=== PATIENT | male | born 1950 | race Two or more races ===

== ENCOUNTER 2021-08-11 07:54 | Observation (INO) ==
[2021-08-11] MEDS ORDERED: SODIUM CHLORIDE 0.9% 1000ML 1,000 ML IV ONE (08:13)
--- NOTE | 2021-08-11 08:20 | Emergency Department Note ---
Impression & Plan Syncope and collapse, HTN (hypertension), HLD (hyperlipidemia), Elevated bilirubin ED Provider Note NAME: BRITTANY HERNANDEZ AGE: 71 SEX: M : 1950 ARRIVES VIA: Ambulance INFORMANT: Patient ED PROVIDER(S): Adis Potts DO CHIEF COMPLAINT: syncope HPI: Patient is a 71-year-old male with a past medical history of HTN and HLD who presents the ER for passing out. 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 He felt like he could not focus the next thing he knew he was waking up on the floor. When he woke up he knew everybody was around him. He is adamant that he was not confused. Before hand he did not have any chest pain or shortness of breath. He had no belly pain, nausea, vomiting, or diarrhea. No dysuria, urgency, or frequency. He was feeling completely fine this morning when he woke up. He believes he passed out around 630. They believe it was witnessed but the guards have no other additional information. Called [facility] and discussed with PA and they are unaware of anything additionally that occurred and cannot relay any additional information. ROS: See above HPI for pertinent positives & negatives. A total of 10 systems reviewed and were otherwise negative. PAST MEDICAL HISTORY:See Below PAST SURGICAL HISTORY:See Below FAMILY HISTORY:See Below SOCIAL HISTORY:See Below HOME MEDICATIONS:See Below ALLERGIES:See Below VITALS:See Below PHYSICAL EXAMINATION: GENERAL: Sitting up in bed, alert, well appearing, well nourished, no distress, non-toxic EYE EXAM: normal conjunctiva. PERRL and EOM's grossly intact. OROPHARYNX: no exudate, no erythema, lips, buccal mucosa, and tongue normal and mucous membranes are moist NECK: supple, no nuchal rigidity, no adenopathy, non-tender LUNGS: Clear to auscultation. Normal chest wall mechanics HEART: no murmurs, S1 normal and S2 normal ABDOMEN: abdomen soft, non-tender, normo-active bowel sounds, no masses, no rebound or guarding. UPPER EXTREMITIES: upper extremities are grossly normal. LOWER EXTREMITIES: No pitting edema. NEURO EXAM: Normal sensorium, cranial nerves II-XII intact, normal speech, no weakness of arms, no weakness of legs. No drift. Finger to nose intact. Gross sensation intact. MEDICAL DECISION MAKING: Patient is a 71-year-old male who presents the ER with above-stated complaint. IV was established blood work was obtained. Labs show mild leukocytosis of 11,000. No anemia. D-dimer was negative. BMP along with LFTs bilirubin was unremarkable. Troponin was negative. T bili was slightly up at 1.8. Covid was negative. CT head was negative and chest x-ray was unremarkable. Patient had no prodromal symptoms prior to passing out. Called over to the long-term but there is nobody there that witnessed the syncopal event. Patient was updated bedside. Discussed with hospitalist for further evaluation and observation to monitor for possible cardiac origins. Of note his EKG did show T wave inversions no old to compare to here. Triage Nursing notes reviewed. Limited review of prior medical records performed Vital Signs: reviewed and remarkable for no significant abnormalities Differential diagnosis: Differential diagnosis includes etiologies such as vasovagal event, infection, hypoglycemia, electrolyte abnormalities, cardiac sources, intracerebral event, toxicologic, neurologic, as well as others were entertained. ER treatment provided: See below Diagnostics interpreted by me: ECG: Sinus rhythm rate of 67 PVC Left axis T wave inversion lead V3 through V6 ST depressions lead to be 3 through V6 No old to compare to within our system. T waves are new in comparison to EKG at [facility] this morning Cardiac Monitoring: An order was placed for continuous cardiac monitoring. The monitor shows a rate of 62 with sinus rhythm. Laboratory studies: As stated above and show below. Imaging studies: CT head was negative Chest x-ray unremarkable Consultation(s): Discussed with hospitalist for further evaluation Procedures: none Critical Care: None Past Med/Surg History Social History (Updated 08/11/21 @ 10:51 by Nieves Hernandez PA-C) Smoking Status: Former smoker Tobacco Type: Cigarettes Preferred Language: Czech Feels Safe at Home: Yes Allergies Allergies Allergy/AdvReac Type Severity Reaction Status Date / Time No Known Allergies Allergy Unverified 08/11/21 09:21 Home Meds Home Medications Medication Instructions Recorded Confirmed amlodipine 5 mg tablet 5 mg PO DAILY 08/11/21 08/11/21 aspirin 81 mg capsule 81 mg PO DAILY 08/11/21 08/11/21 atorvastatin 20 mg tablet 20 mg PO HS 08/11/21 08/11/21 hydrochlorothiazide 25 mg tablet 25 mg PO DAILY 08/11/21 08/11/21 Results & Data (ED) Vital Signs Vital Signs - 24 hr 08/11/21 08:01 08/11/21 08:03 08/11/21 08:10 Temperature 37.2 C Temperature Source Oral Pulse Rate 70 69 Pulse Rate from SpO2 Sensor 68 Respiratory Rate 19 18 Respiratory Depth Normal Blood Pressure 112/62 112/62 Blood Pressure Mean 78 78 Pulse Oximetry 97 97 Oxygen Delivery Method Room Air Room Air Sepsis Recent Fever Within 48 Hours No Sepsis New/Unexplained Change in Mental Status No Sepsis Action Taken by Nursing No Action Required 08/11/21 08:30 08/11/21 08:32 08/11/21 08:55 Temperature Temperature Source Pulse Rate 68 65 Pulse Rate from SpO2 Sensor 60 Respiratory Rate 19 20 24 Respiratory Depth Blood Pressure 116/68 Blood Pressure Mean 66 84 Pulse Oximetry 96 98 Oxygen Delivery Method Sepsis Recent Fever Within 48 Hours Sepsis New/Unexplained Change in Mental Status Sepsis Action Taken by Nursing 08/11/21 09:00 08/11/21 09:30 Temperature Temperature Source Pulse Rate 66 66 Pulse Rate from SpO2 Sensor 55 L 64 Respiratory Rate 16 19 Respiratory Depth Blood Pressure Blood Pressure Mean Pulse Oximetry 98 99 Oxygen Delivery Method Sepsis Recent Fever Within 48 Hours Sepsis New/Unexplained Change in Mental Status Sepsis Action Taken by Nursing Laboratory Data Result diagrams: 08/11/21 08:35 08/11/21 08:35 Lab Results 08/11/21 08/11/21 08/11/21 Range/Units 08:35 08:35 08:35 WBC 11.30 H (4.8-10.8) K/uL RBC 4.66 L (4.7-6.1) M/uL Hgb 13.0 L (14.0-18.0) g/dL Hct 40.0 L (42-52) % MCV 85.8 (80-100) fL MCH 27.9 (25-34) pg MCHC 32.5 (32-36) g/dL RDW Std Deviation 39.3 (36.4-46.3) fL RDW Coeff of Mainor 12.6 (11.5-14.5) % Plt Count 204 (130-400) K/uL MPV 10.4 (7.4-10.4) fL Immature Gran % (Auto) 0.2 % Neut % (Auto) 91.8 % Lymph % (Auto) 2.7 % [place] % (Auto) 4.7 % Eos % (Auto) 0.3 % Baso % (Auto) 0.3 % Neut # (Auto) 10.38 H (1.4-6.5) K/uL Lymph # (Auto) 0.31 L (1.2-3.4) K/uL [place] # (Auto) 0.53 (0.11-0.59) K/uL Eos # (Auto) 0.03 (0-0.5) K/uL Baso # (Auto) 0.03 (0-0.2) K/uL Immature Gran # (Auto) 0.02 (0.00-0.02) K/uL D-Dimer 310 (0-500) ug/L FEU Sodium 136 (136-145) mmol/L Potassium 3.8 (3.5-5.1) mmol/L Chloride 102 (98-107) mmol/L Carbon Dioxide 27 (21-32) mmol/L Anion Gap 7 (3-11) BUN 19 (6-23) mg/dl Creatinine 1.04 (0.6-1.4) mg/dl Est Cr Clr Drug Dosing 76.9 ml/min Est GFR ( Amer) 84.5 ml/min Est GFR (Non-Af Amer) 72.9 ml/min BUN/Creatinine Ratio 18.3 (10-20) Glucose 127 H (70-99(Fasting)) mg/dl Calcium 9.3 (8.5-10.1) mg/dl Total Bilirubin 1.8 H (0.2-1.0) mg/dl AST 28 (13-39) U/L ALT 23 (7-52) U/L Alkaline Phosphatase 73 (34-104) U/L Troponin I < 0.03 (0-0.04) ng/ml Total Protein 7.2 (6.0-8.3) gm/dl Albumin 4.1 (3.4-5.0) gm/dl Globulin 3.1 (2.5-4.0) gm/dl Albumin/Globulin Ratio 1.3 (0.9-2) Lipase 29 (11-82) U/L SARS-CoV-2, RNA, NAAT (NEGATIVE) 08/11/21 Range/Units 08:43 WBC (4.8-10.8) K/uL RBC (4.7-6.1) M/uL Hgb (14.0-18.0) g/dL Hct (42-52) % MCV (80-100) fL MCH (25-34) pg MCHC (32-36) g/dL RDW Std Deviation (36.4-46.3) fL RDW Coeff of Mainor (11.5-14.5) % Plt Count (130-400) K/uL MPV (7.4-10.4) fL Immature Gran % (Auto) % Neut % (Auto) % Lymph % (Auto) % [place] % (Auto) % Eos % (Auto) % Baso % (Auto) % Neut # (Auto) (1.4-6.5) K/uL Lymph # (Auto) (1.2-3.4) K/uL [place] # (Auto) (0.11-0.59) K/uL Eos # (Auto) (0-0.5) K/uL Baso # (Auto) (0-0.2) K/uL Immature Gran # (Auto) (0.00-0.02) K/uL D-Dimer (0-500) ug/L FEU Sodium (136-145) mmol/L Potassium (3.5-5.1) mmol/L Chloride (98-107) mmol/L Carbon Dioxide (21-32) mmol/L Anion Gap (3-11) BUN (6-23) mg/dl Creatinine (0.6-1.4) mg/dl Est Cr Clr Drug Dosing ml/min Est GFR ( Amer) ml/min Est GFR (Non-Af Amer) ml/min BUN/Creatinine Ratio (10-20) Glucose (70-99(Fasting)) mg/dl Calcium (8.5-10.1) mg/dl Total Bilirubin (0.2-1.0) mg/dl AST (13-39) U/L ALT (7-52) U/L Alkaline Phosphatase (34-104) U/L Troponin I (0-0.04) ng/ml Total Protein (6.0-8.3) gm/dl Albumin (3.4-5.0) gm/dl Globulin (2.5-4.0) gm/dl Albumin/Globulin Ratio (0.9-2) Lipase (11-82) U/L SARS-CoV-2, RNA, NAAT NEGATIVE (NEGATIVE) Administered Medications Discontinued Medications Sodium Chloride (Nss 1000ml) 1,000 mls @ 999 mls/hr IV .Q1H1M ONE Stop: 08/11/21 09:13 Last Infusion: 08/11/21 09:55 Dose: 0 mls/hr Documented by: [id number] Admin: 08/11/21 08:45 Dose: 999 mls/hr Documented by: [id number] Imaging Data Radiologist's Impression: Chest X-Ray 08/11/21 08:13 XR chest 1V portable HISTORY: 71 years-old Male Chest Pain acute atypical chest pain COMPARISON: None TECHNIQUE: Portable AP view of the chest FINDINGS: The cardiac silhouette is mildly enlarged. No pneumothorax, pleural effusion, airspace consolidation or overt pulmonary edema. Mild right hemidiaphragmatic elevation. Degenerative changes of the shoulders and spine. IMPRESSION: No acute process. ACT 112: Negative or not required by law. The above report was generated using voice recognition software. It may contain grammatical, syntax or spelling errors. Electronically signed by: Prakash Le M.D. 08/11/2021 8:[address] 08/11/21 08:13 CT SCAN OF THE BRAIN WITHOUT IV CONTRAST CLINICAL HISTORY: Change in mental status. COMPARISON STUDY: No priors. TECHNIQUE: Unenhanced axial CT scan of the brain is performed from the vertex to the skull base. A dose lowering technique was utilized adhering to the principles of ALARA. CT DOSE: 638.56 mGycm FINDINGS: Brain parenchyma: The brain parenchyma is normal in appearance. There is no hemorrhage, mass effect, or evidence of acute territorial ischemia by CT criteria. Ferris-white matter differentiation is preserved. No extra-axial fluid collection is seen. Ventricles, sulci, cisterns: Normal in configuration. Intracranial vasculature: There is mild atherosclerotic calcification of the cavernous carotid arteries. Calvarium: Unremarkable. Sinuses and mastoids: The visualized paranasal sinuses are clear. The mastoid a ir cells are well pneumatized. Orbits: The bony orbits are grossly intact. IMPRESSION: There is no hemorrhage, mass effect, or evidence of acute territorial ischemia by CT criteria. ACT 112: Negative or not required by law. Electronically signed by: Luis Lopez M.D. 08/11/2021 9:01 AM Discharge Plan Visit Data Chief Complaint: Syncope Stated Complaint: SYNCOPE, NAUSEA, VOMITING ED Provider: Adis Potts Discharge Problem: Syncope and collapse, HTN (hypertension), HLD (hyperlipidemia), Elevated bilirubin Patient Disposition: Admitted As Inpatient Discharge Instructions Interventions: ED Discharge Assessment Last Done: 08/11/21 11:20
--- NOTE | 2021-08-11 08:43 | XRay Report ---
XR chest 1V portable HISTORY: 71 years-old Male Chest Pain acute atypical chest pain COMPARISON: None TECHNIQUE: Portable AP view of the chest FINDINGS: The cardiac silhouette is mildly enlarged. No pneumothorax, pleural effusion, airspace consolidation or overt pulmonary edema. Mild right hemidiaphragmatic elevation. Degenerative changes of the shoulde rs and spine. IMPRESSION: No acute process. ACT 112: Negative or not required by law. The above report was generated using voice recognition software. It may contain grammatical, syntax o r spelling errors. Electronically signed by: Prakash Le M.D. 08/11/2021 8:41 AM
[2021-08-11 08:51] LABS: Basophils # (auto) 0.03 K/uL (0-0.2); Basophils % (auto) 0.3 %; Eosinophils # (auto) 0.03 K/uL (0-0.5); Eosinophils % (auto) 0.3 %; Immature Granulocytes # (auto) 0.02 K/uL (0.00-0.02); Immature Granulocytes % (auto) 0.2 %; Lymphocytes # (auto) 0.31 K/uL (1.2-3.4); Lymphocytes % (auto) 2.7 %; Mean Corpuscular Hemoglobin 27.9 pg (25-34); Mean Corpuscular Hgb Conc 32.5 g/dL (32-36); Mean Corpuscular Volume 85.8 fL (80-100); Mean Platelet Volume 10.4 fL (7.4-10.4); Monocytes # (auto) 0.53 K/uL (0.11-0.59); Monocytes % (auto) 4.7 %; Neutrophils # (auto) 10.38 K/uL (1.4-6.5); Neutrophils % (auto) 91.8 %; Platelet Count 204 K/uL (130-400); RDW Coefficient of Variation 12.6 % (11.5-14.5); RDW Standard Deviation 39.3 fL (36.4-46.3); Red Blood Count 4.66 M/uL (4.7-6.1)
[2021-08-11 09:02] LABS: D Dimer 310 ug/L FEU (0-500)
--- NOTE | 2021-08-11 09:03 | CT Scan Report ---
CT SCAN OF THE BRAIN WITHOUT IV CONTRAST CLINICAL HISTORY: Change in mental status. COMPARISON STUDY: No priors. TECHNIQUE: Unenhanced axial CT scan of the brain is performed from the vertex to the skull base. A d ose lowering technique was utilized adhering to the principles of ALARA. CT DOSE: 638.56 mGycm FINDINGS: Brain parenchyma: The brain parenchyma is normal in appearance. There is no hemorrhage, mass effect, or evidence of acute territorial ischemia by CT criteria. Ferris-white matter differentiation is preser dipika. No extra-axial fluid collection is seen. Ventricles, sulci, cisterns: Normal in configuration. Intracranial vasculature: There is mild atherosclerotic calcification of the cavernous carotid arteri es. Calvarium: Unremarkable. Sinuses and mastoids: The visualized paranasal sinuses are clear. The mastoid air cells are well pneu matized. Orbits: The bony orbits are grossly intact. IMPRESSION: There is no hemorrhage, mass effect, or evidence of acute territorial ischemia by CT diaz cormier. ACT 112: Negative or not required by law. Electronically signed by: Luis Lopez M.D. 08/11/2021 9:01 AM
[2021-08-11 09:11] LABS: Alanine Aminotransferase 23 U/L (7-52); Albumin Globulin Ratio 1.3 (0.9-2); Albumin Level 4.1 gm/dl (3.4-5.0); Alkaline Phosphatase 73 U/L (34-104); Anion Gap 7 (3-11); Aspartate Aminotransferase 28 U/L (13-39); BUN Creatinine Ratio 18.3 (10-20); Bilirubin,Total 1.8 mg/dl (0.2-1.0); Blood Urea Nitrogen 19 mg/dl (6-23); Calcium 9.3 mg/dl (8.5-10.1); Carbon Dioxide 27 mmol/L (21-32); Chloride 102 mmol/L (98-107); Creatinine Clr Calc Pharmacy 76.9 ml/min; Est GFR (African American) 84.5 ml/min; Est GFR (Non-African American) 72.9 ml/min; Globulin 3.1 gm/dl (2.5-4.0); Glucose 127 mg/dl (70-99(Fasting)); Lipase 29 U/L (11-82); Potassium 3.8 mmol/L (3.5-5.1); Sodium 136 mmol/L (136-145); Total Protein 7.2 gm/dl (6.0-8.3)
[2021-08-11 09:12] LABS: Troponin I < 0.03 ng/ml (0-0.04)
--- NOTE | 2021-08-11 10:54 | History & Physical Report ---
Date of Service August 11, 2021 Assessment & Plan (1) Syncope and collapse: (2) HTN (hypertension): (3) HLD (hyperlipidemia): Plan: - Admit to tele for observation - EKG reviewed by myself as above with ST wave inversions in V3-V6 - unknown if changes as there isn't another EKG available for comparison. - Check 2 D echo - Trend troponin, initial was negative - Check Am EKG - Pt denies any chest pain, palpitations, flutter, dizziness or lightheadedness - Consider cardiology consult if any changes - Concern that this was possible adverse reaction from COVID-19 booster ? - Continue amlodipine, aspirin, atorvastatin, HCTZ for blood pressure and HLD - Check A1C and lipids for completeness - Check EEG to r/o seziure - denies loss of bowel or bladder dysfunction - Orthostatic Bps x 1 DVT ppx: - teds, scds, lovenox sub q CODE: Full Dispo: From home, likely to remain in the hospital x 1-2 days History of Present Illness Chief Complaint: Syncopal episode Primary Care Provider: [facility] This is a 71-year-old male with only PMHx of HTN and HLD who currently is a resident of [facility] who was transferred due to syncope and collapse which occurred this morning. He was in his normal state of health earlier today, woke up at approximately 3 AM and took his morning medications around 4 AM. He was working in the kitchen with other inmates and reports that he was sitting working on some paperwork when he felt a bit "off" and then came to when he was laying on the ground. He reports that there were other inmates who essentially caught him when he began to fell to the ground, denies that he struck his head or injured any other area of his body. He denies any current symptoms presently. Yesterday at ~4pm he received his Moderna booster for COVID-19 vaccination. He previously had his first series with J&J vaccine over 1 year ago. Patient reports that he has been eating and drinking without any difficulty. He has no other acute complaints. Denies any heart history other than high blood pressure and cholesterol. This has never occurred before. Family history: Mother and father without known medical history, had an uncle who of lung cancer. 1 brother after serving in the [place] War, other brothers and sisters alive and well without known medical issues Social history: Has been in senior care since the early , remote smoking history of 6 years, quit in 1972 and smoked 10 cigarettes/day, no alcohol use. Allergies Allergy/AdvReac Type Severity Reaction Status Date / Time No Known Allergies Allergy Unverified 08/11/21 09:21 Home Medications Medication Instructions Recorded Confirmed Type amlodipine 5 mg tablet 5 mg PO DAILY 08/11/21 08/11/21 History aspirin 81 mg capsule 81 mg PO DAILY 08/11/21 08/11/21 History atorvastatin 20 mg tablet 20 mg PO HS 08/11/21 08/11/21 History hydrochlorothiazide 25 mg tablet 25 mg PO DAILY 08/11/21 08/11/21 History Past Med/Surg History Social History (Updated 08/11/21 @ 10:51 by Nieves Hernandez PA-C) Smoking Status: Former smoker Tobacco Type: Cigarettes Preferred Language: Brazilian Feels Safe at Home: Yes Review of Systems Review of Systems: Constitutional: No fever, sweats or chills Eyes: No diplopia, no worsening or blurred vision ENT: normal hearing, no trouble swallowing Respiratory: No cough, sputum, dyspnea at rest or on exertion Cardiovascular: No chest pain, tightness or palpitations Abdomen: No pain, nausea, vomiting, diarrhea or constipation Musculoskeletal: No joint pain, calf pain, swelling Neurologic: No weakness, numbness/tingling, or balance problems Psychiatric: No anxiety or depression Skin: No rash or itch Physical Exam Physical Exam: General: awake, alert, no apparent distress, physically fit Head: Normocephalic, atraumatic ENT: PERRL, EOMI, no pharyngeal exudate, mucous membranes moist Chest: Clear to auscultation, on room air, no adventitious breath sounds Cardiac: Regular rate and rhythm, no murmur, no JVD, normal peripheral pulses, good capillary refill Abdominal: NABS x 4 quadrants, soft, nondistended, nontender to palpation, no rebound or guarding Extremities: Normal inspection, no peripheral edema or erythema, calfs nontender to palpation Psych: Normal mood and affect Neuro: AAO x 3, strength intact bilaterally and rated 5/5, no motor deficits, speech is clear, no peripheral sensory deficits Results & Data Results & Data (MN) Vital Signs (Past 12 Hours) Vital Signs Temp Pulse Resp BP Pulse Ox 08/11/21 09:30 66 19 99 08/11/21 09:00 66 16 98 08/11/21 08:55 24 116/68 98 08/11/21 08:32 65 20 96 08/11/21 08:30 68 19 08/11/21 08:03 37.2 C 69 18 112/62 97 08/11/21 08:01 70 19 112/62 97 Laboratory Results 08/11/21 08/11/21 08/11/21 08:43 08:35 08:35 WBC RBC Hgb Hct MCV MCH MCHC RDW Std Deviation RDW Coeff of Mainor Plt Count MPV Immature Gran % (Auto) Neut % (Auto) Lymph % (Auto) [place] % (Auto) Eos % (Auto) Baso % (Auto) Neut # (Auto) Lymph # (Auto) [place] # (Auto) Eos # (Auto) Baso # (Auto) Immature Gran # (Auto) D-Dimer 310 Sodium 136 Potassium 3.8 Chloride 102 Carbon Dioxide 27 Anion Gap 7 BUN 19 Creatinine 1.04 Est Cr Clr Drug Dosing 76.9 Est GFR ( Amer) 84.5 Est GFR (Non-Af Amer) 72.9 BUN/Creatinine Ratio 18.3 Glucose 127 H Calcium 9.3 Total Bilirubin 1.8 H AST 28 ALT 23 Alkaline Phosphatase 73 Troponin I < 0.03 Total Protein 7.2 Albumin 4.1 Globulin 3.1 Albumin/Globulin Ratio 1.3 Lipase 29 SARS-CoV-2, RNA, NAAT NEGATIVE 08/11/21 08:35 WBC 11.30 H RBC 4.66 L Hgb 13.0 L Hct 40.0 L MCV 85.8 MCH 27.9 MCHC 32.5 RDW Std Deviation 39.3 RDW Coeff of Mainor 12.6 Plt Count 204 MPV 10.4 Immature Gran % (Auto) 0.2 Neut % (Auto) 91.8 Lymph % (Auto) 2.7 [place] % (Auto) 4.7 Eos % (Auto) 0.3 Baso % (Auto) 0.3 Neut # (Auto) 10.38 H Lymph # (Auto) 0.31 L [place] # (Auto) 0.53 Eos # (Auto) 0.03 Baso # (Auto) 0.03 Immature Gran # (Auto) 0.02 D-Dimer Sodium Potassium Chloride Carbon Dioxide Anion Gap BUN Creatinine Est Cr Clr Drug Dosing Est GFR ( Amer) Est GFR (Non-Af Amer) BUN/Creatinine Ratio Glucose Calcium Total Bilirubin AST ALT Alkaline Phosphatase Troponin I Total Protein Albumin Globulin Albumin/Globulin Ratio Lipase SARS-CoV-2, RNA, NAAT Diagnostic Findings Chest X-Ray 08/11/21 08:13 XR chest 1V portable HISTORY: 71 years-old Male Chest Pain acute atypical chest pain COMPARISON: None TECHNIQUE: Portable AP view of the chest FINDINGS: The cardiac silhouette is mildly enlarged. No pneumothorax, pleural effusion, airspace consolidation or overt pulmonary edema. Mild right hemidiaphragmatic elevation. Degenerative changes of the shoulders and spine. IMPRESSION: No acute process. ACT 112: Negative or not required by law. The above report was generated using voice recognition software. It may contain grammatical, syntax or spelling errors. Electronically signed by: Prakash Le M.D. 08/11/2021 8:[address] 08/11/21 08:13 CT SCAN OF THE BRAIN WITHOUT IV CONTRAST CLINICAL HISTORY: Change in mental status. COMPARISON STUDY: No priors. TECHNIQUE: Unenhanced axial CT scan of the brain is performed from the vertex to the skull base. A dose lowering technique was utilized adhering to the principles of ALARA. CT DOSE: 638.56 mGycm FINDINGS: Brain parenchyma: The brain parenchyma is normal in appearance. There is no hemorrhage, mass effect, or evidence of acute territorial ischemia by CT criteria. Ferris-white matter differentiation is preserved. No extra-axial fluid collection is seen. Ventricles, sulci, cisterns: Normal in configuration. Intracranial vasculature: There is mild atherosclerotic calcification of the cavernous carotid arteries. Calvarium: Unremarkable. Sinuses and mastoids: The visualized paranasal sinuses are clear. The mastoid air cells are well pneumatized. Orbits: The bony orbits are grossly intact. IMPRESSION: There is no hemorrhage, mass effect, or evidence of acute territorial ischemia by CT criteria. ACT 112: Negative or not required by law. Electronically signed by: Luis Lopez M.D. 08/11/2021 9:01 AM ECG Additional Comments: 11-AUG-2021 07:58:26 [facility]-EDSTAT ROUTINE RETRIEVAL Sinus rhythm with occasional Premature ventricular complexes Possible Left atrial enlargement Left ventricular hypertrophy Nonspecific ST and T wave abnormality Abnormal ECG No previous ECGs available 25mm/[id number]: 16Unconfirmed Vent. rate 67 BPM [place] interval 178 ms QRS duration 90 ms QT/QTc 404/[address] wave inversions in V3-V6 on review by my read, unknown if changed from previous as there is not another EKG available for comparison. Code Status & VTE Plan Code Status Full VTE Prophylaxis Plan VTE Prophylaxis will be ordered: Yes Supervising Physician Co-Signing Physician Notes Attending addendum: The patient was seen and examined in emergency room He had a syncopal episode with possible loss of consciousness for about a minute as per the patient while he was sitting on a chair and doing his usual work at the senior care He did not have any warning before the episode, and not sure whether he looked pale during the episode and no incontinence or injury Has been feeling a lot better in the emergency room On examination No apparent distress at rest Hemodynamically stable Chestclear to auscultate bilaterally HeartS1-S2, no murmur Abdomenbenign CNSalert, awake and oriented x3. No focal sensory or motor deficit appreciated His labs, EKG and imaging studies reviewed Syncopal episode without any warning, rule out cardiac, could be vasovagal and doubt any seizure disorder Agree with assessment and plan as outlined above by Nieves Boyd
[2021-08-11] MEDS ORDERED: ONDANSETRON INJ 2 MG/ML 2 ML VIAL IV PRN (11:17)
[2021-08-11] MEDS ORDERED: ACETAMINOPHEN 325 MG TAB PO PRN (11:17)
--- NOTE | 2021-08-11 11:28 | Electrocardiogram Report ---
Test Reason : Blood Pressure : / mmHG Vent. Rate : 067 BPM Atrial Rate : 067 BPM P-R Int : 178 ms QRS Dur : 090 ms QT Int : 404 ms P-R-T Axes : 061 -22 018 degrees QTc Int : 426 ms Sinus rhythm with occasional Premature ventricular complexes Possible Left atrial enlargement Left ventricular hypertrophy Nonspecific ST and T wave abnormality Incomplete right bundle branch block Abnormal ECG No previous ECGs available Confirmed by Oli Romero ([id number]) on 08/11/2021 11:28:29 AM Referred By: Confirmed By:Satish Romero
--- NOTE | 2021-08-11 14:41 | Electroencephalogram ---
EEG Procedure Note Date of Service August 11, 2021 Start / End Times Start Time: 12:27 End Time: 12:[address] Mary Pickett PA-C History A 71 year old male with syncopal episode. EEG performed for evaluation of epileptiform activity. Home Medication List Medication Instructions Recorded Confirmed Type amlodipine 5 mg tablet 5 mg PO DAILY 08/11/21 08/11/21 History aspirin 81 mg capsule 81 mg PO DAILY 08/11/21 08/11/21 History atorvastatin 20 mg tablet 20 mg PO HS 08/11/21 08/11/21 History hydrochlorothiazide 25 mg tablet 25 mg PO DAILY 08/11/21 08/11/21 History Inpatient Medication List Discontinued Medications Sodium Chloride (Nss 1000ml) 1,000 mls @ 999 mls/hr IV .[id number] ONE Stop: 08/11/21 09:13 Last Infusion: 08/11/21 09:55 Dose: 0 mls/hr Documented by: [id number] Admin: 08/11/21 08:45 Dose: 999 mls/hr Documented by: [id number] Description This is a 21 electrode EEG with a single channel dedicated to limited EKG. The electrodes were placed in accordance with the International 10-20 system. REPORT: At the onset of the EEG the patient is awake. The background is symmetric. The posterior dominant rhythm is 10 Hz. Anteriorly there is low amplitude beta activity. Drowsiness is characterized by decreased blink rate, reduced myogenic artifact, and increased theta activity. No stage II sleep transients are seen. Photic stimulation does not induce any abnormalities. Interpretation This is a normal awake and drowsy routine EEG. There is no evidence of focal slowing or epileptiform activity.
[2021-08-11] MEDS ORDERED: ATORVASTATIN 20 MG TAB PO SCH (21:00)
[2021-08-12 06:18] LABS: Hematocrit (blood only) 40.5 % (42-52); Hemoglobin 13.2 g/dL (14.0-18.0); Mean Corpuscular Hgb Conc 32.6 g/dL (32-36); Mean Corpuscular Volume 85.8 fL (80-100); Mean Platelet Volume 10.1 fL (7.4-10.4); Platelet Count 182 K/uL (130-400); RDW Coefficient of Variation 12.9 % (11.5-14.5); RDW Standard Deviation 40.8 fL (36.4-46.3); Red Blood Count 4.72 M/uL (4.7-6.1); White Blood Count 6.23 K/uL (4.8-10.8)
[2021-08-12 06:46] LABS: Albumin Globulin Ratio 1.2 (0.9-2); Albumin Level 3.7 gm/dl (3.4-5.0); BUN Creatinine Ratio 17.2 (10-20); Bilirubin,Total 1.3 mg/dl (0.2-1.0); Calcium 8.8 mg/dl (8.5-10.1); Chol HDL Ratio 2.2 (0-5); Est GFR (African American) 96.7 ml/min; Est GFR (Non-African American) 83.5 ml/min; Potassium 3.8 mmol/L (3.5-5.1); Total Protein 6.7 gm/dl (6.0-8.3)
[2021-08-12 07:12] LABS: Estimated Average Glucose 114 mg/dl; Hemoglobin A1C 5.6 % (4.5-5.6)
[2021-08-12] MEDS ORDERED: hydroCHLOROthiazide 25 MG TAB PO SCH (09:00)
[2021-08-12] MEDS ORDERED: ASPIRIN 81 MG ECTAB PO SCH (09:00)
[2021-08-12] MEDS ORDERED: amLODIPine BESYLATE 5 MG TAB PO SCH (09:00)
[2021-08-12] MEDS ORDERED: ENOXAPARIN INJ 40 MG/0.4 ML SYR SQ SCH (09:00)
--- NOTE | 2021-08-12 11:35 | Discharge Summary ---
Date of Service August 12, 2021 Admission HPI Per Admitting Provider This is a 71-year-old male with only PMHx of HTN and HLD who currently is a resident of [facility] who was transferred due to syncope and collapse which occurred this morning. He was in his normal state of health earlier today, woke up at approximately 3 AM and took his morning medications around 4 AM. He was working in the kitchen with other inmates and reports that he was sitting working on some paperwork when he felt a bit "off" and then came to when he was laying on the ground. He reports that there were other inmates who essentially caught him when he began to fell to the ground, denies that he struck his head or injured any other area of his body. He denies any current symptoms presently. Yesterday at ~4pm he received his Moderna booster for COVID-19 vaccination. He previously had his first series with J&J vaccine over 1 year ago. Patient reports that he has been eating and drinking without any difficulty. He has no other acute complaints. Denies any heart history other than high blood pressure and cholesterol. This has never occurred before. Family history: Mother and father without known medical history, had an uncle who of lung cancer. 1 brother after serving in the [place] War, other brothers and sisters alive and well without known medical issues Social history: [facility] been in [facility] since the early , remote smoking history of 6 years, quit in 1972 and smoked 10 cigarettes/day, no alcohol use. Admission Exam Per Admitting Provider General: awake, alert, no apparent distress, physically fit Head: Normocephalic, atraumatic ENT: PERRL, EOMI, no pharyngeal exudate, mucous membranes moist Chest: Clear to auscultation, on room air, no adventitious breath sounds Cardiac: Regular rate and rhythm, no murmur, no JVD, normal peripheral pulses, good capillary refill Abdominal: NABS x 4 quadrants, soft, nondistended, nontender to palpation, no rebound or guarding Extremities: Normal inspection, no peripheral edema or erythema, calfs nontender to palpation Psych: Normal mood and affect Neuro: AAO x 3, strength intact bilaterally and rated 5/5, no motor deficits, speech is clear, no peripheral sensory deficits Principal Diagnosis syncope Discharge Exam CONSTITUTIONAL: WNWD, vitals as above, generally well-appearing, NAD EYES: EOMI bilaterally, PERRL, normal conjunctivae, no scleral icterus ENT: external ear and nose normal, oropharynx clear NECK: trachea midline RESPIRATORY: clear to auscultation bilaterally, no crackles, rales or wheezes, normal respiratory effort CARDIOVASCULAR: regular rate and rhythm, S1 and 2 heard without murmurs, gallops or rubs, no JVD, no peripheral edema, CHEST: inspection of chest was normal GASTROINTESTINAL: soft, nontender ,ND, no guarding MUSCULOSKELETAL: strength 5/5 throughout, head is normocephalic and atraumatic SKIN: warm and dry NEUROLOGIC: CN 2-12 grossly intact, no sensory deficit, normal cognition, normal speech, no tremor PSYCHIATRIC: alert cooperative and oriented to person, place and time. Discharge Data Allergies Allergy/AdvReac Type Severity Reaction Status Date / Time No Known Allergies Allergy Unverified 08/11/21 09:21 Ordered Studies Laboratory Results WBC 6.23 K/uL (4.8-10.8) 08/12/21 05:31 RBC 4.72 M/uL (4.7-6.1) 08/12/21 05:31 Hgb 13.2 g/dL (14.0-18.0) L 08/12/21 05:31 Hct 40.5 % (42-52) L 08/12/21 05:31 MCV 85.8 fL (80-100) 08/12/21 05:31 MCH 28.0 pg (25-34) 08/12/21 05:31 MCHC 32.6 g/dL (32-36) 08/12/21 05:31 RDW Std Deviation 40.8 fL (36.4-46.3) 08/12/21 05:31 RDW Coeff of Mainor 12.9 % (11.5-14.5) 08/12/21 05:31 Plt Count 182 K/uL (130-400) 08/12/21 05:31 MPV 10.1 fL (7.4-10.4) 08/12/21 05:31 Immature Gran % (Auto) 0.2 % 08/11/21 08:35 Neut % (Auto) 91.8 % 08/11/21 08:35 Lymph % (Auto) 2.7 % 08/11/21 08:35 Metcalfe % (Auto) 4.7 % 08/11/21 08:35 Eos % (Auto) 0.3 % 08/11/21 08:35 Baso % (Auto) 0.3 % 08/11/21 08:35 Neut # (Auto) 10.38 K/uL (1.4-6.5) H 08/11/21 08:35 Lymph # (Auto) 0.31 K/uL (1.2-3.4) L 08/11/21 08:35 Metcalfe # (Auto) 0.53 K/uL (0.11-0.59) 08/11/21 08:35 Eos # (Auto) 0.03 K/uL (0-0.5) 08/11/21 08:35 Baso # (Auto) 0.03 K/uL (0-0.2) 08/11/21 08:35 Immature Gran # (Auto) 0.02 K/uL (0.00-0.02) 08/11/21 08:35 D-Dimer 310 ug/L FEU (0-500) 08/11/21 08:35 Sodium 138 mmol/L (136-145) 08/12/21 05:31 Potassium 3.8 mmol/L (3.5-5.1) 08/12/21 05:31 Chloride 104 mmol/L (98-107) 08/12/21 05:31 Carbon Dioxide 28 mmol/L (21-32) 08/12/21 05:31 Anion Gap 6 (3-11) 08/12/21 05:31 BUN 16 mg/dl (6-23) 08/12/21 05:31 Creatinine 0.93 mg/dl (0.6-1.4) 08/12/21 05:31 Est Cr Clr Drug Dosing 86.0 ml/min 08/12/21 05:31 Est GFR ( Amer) 96.7 ml/min 08/12/21 05:31 Est GFR (Non-Af Amer) 83.5 ml/min 08/12/21 05:31 BUN/Creatinine Ratio 17.2 (10-20) 08/12/21 05:31 Glucose 104 mg/dl (70-99(Fasting)) H 08/12/21 05:31 Estimat Average Glucose 114 mg/dl 08/12/21 05:31 Hemoglobin A1c 5.6 % (4.5-5.6) 08/12/21 05:31 Calcium 8.8 mg/dl (8.5-10.1) 08/12/21 05:31 Total Bilirubin 1.3 mg/dl (0.2-1.0) H 08/12/21 05:31 AST 31 U/L (13-39) 08/12/21 05:31 ALT 26 U/L (7-52) 08/12/21 05:31 Alkaline Phosphatase 66 U/L (34-104) 08/12/21 05:31 Troponin I < 0.03 ng/ml (0-0.04) 08/11/21 20:09 Total Protein 6.7 gm/dl (6.0-8.3) 08/12/21 05:31 Albumin 3.7 gm/dl (3.4-5.0) 08/12/21 05:31 Globulin 3.0 gm/dl (2.5-4.0) 08/12/21 05:31 Albumin/Globulin Ratio 1.2 (0.9-2) 08/12/21 05:31 Triglycerides 60 mg/dl (0-150) 08/12/21 05:31 Cholesterol 105 mg/dl (0-200) 08/12/21 05:31 LDL Cholesterol, Calc 46 mg/dl 08/12/21 05:31 VLDL Cholesterol, Calc 12 mg/dl (0-30) 08/12/21 05:31 HDL Cholesterol 47 mg/dl 08/12/21 05:31 Cholesterol/HDL Ratio 2.2 (0-5) 08/12/21 05:31 Lipase 29 U/L (11-82) 08/11/21 08:35 Nasal Screen MRSA (PCR) Negative (Negative) 08/12/21 05:51 SARS-CoV-2, RNA, NAAT NEGATIVE (NEGATIVE) 08/11/21 08:43 Impressions Chest X-Ray 08/11/21 08:13 XR chest 1V portable HISTORY: 71 years-old Male Chest Pain acute atypical chest pain COMPARISON: None TECHNIQUE: Portable AP view of the chest FINDINGS: The cardiac silhouette is mildly enlarged. No pneumothorax, pleural effusion, airspace consolidation or overt pulmonary edema. Mild right hemidiaphragmatic elevation. Degenerative changes of the shoulders and spine. IMPRESSION: No acute process. ACT 112: Negative or not required by law. The above report was generated using voice recognition software. It may contain grammatical, syntax or spelling errors. Electronically signed by: Prakash Le M.D. 08/11/2021 8:[address] 08/11/21 08:13 CT SCAN OF THE BRAIN WITHOUT IV CONTRAST CLINICAL HISTORY: Change in mental status. COMPARISON STUDY: No priors. TECHNIQUE: Unenhanced axial CT scan of the brain is performed from the vertex to the skull base. A dose lowering technique was utilized adhering to the principles of ALARA. CT DOSE: 638.56 mGycm FINDINGS: Brain parenchyma: The brain parenchyma is normal in appearance. There is no hemorrhage, mass effect, or evidence of acute territorial ischemia by CT criteria. Ferris-white matter differentiation is preserved. No extra-axial fluid collection is seen. Ventricles, sulci, cisterns: Normal in configuration. Intracranial vasculature: There is mild atherosclerotic calcification of the cavernous carotid arteries. Calvarium: Unremarkable. Sinuses and mastoids: The visualized paranasal sinuses are clear. The mastoid air cells are well pneumatized. Orbits: The bony orbits are grossly intact. IMPRESSION: There is no hemorrhage, mass effect, or evidence of acute territorial ischemia by CT criteria. ACT 112: Negative or not required by law. Electronically signed by: Luis Lopez M.D. 08/11/2021 9:01 AM Hospital Course (1) Syncope and collapse: 71-year-old man had a syncopal episode with a presyncopal feeling that he could not focus. This was in the morning while he was working in the kitchen, normal duty for him. He did not feel otherwise abnormal including denies any fevers, chills or other flulike symptoms or pain, shortness of breath or other issues in response to recent Covid vaccination the day prior. He otherwise had no illnesses prior to the event. Lab work revealed a mild leukocytosis of 11,000 with no anemia. D-dimer was negative. BMP along with LFTs was unremarkable. Troponin was negative. Total bilirubin was slightly up at 1.8. Covid screen was negative. CT head was negative and chest x-ray was unremarkable. He was admitted to the hospitalist service and an echocardiogram was performed revealing a normal ejection fraction is 60 to 65%. Overall function was found to be normal with no evidence of pulmonary hypertension and mild mitral regurgitation and tricuspid regurgitation. There was no abnormal wall motion abnormality seen. EKGs revealed sinus rhythm with PVCs and telemetry also revealed this overnight. An EEG was performed revealing no epileptiform activity. The following morning he was feeling well without any issues or symptoms. He was discharged in stable condition with primary care fol lowup recommended and a slow return to physical activity as tolerated. There was no clear cause for the syncopal event which may have been multifactorial (patient on diuretics, early in the morning and may have been tired, etc.), however, there was also a concern for this as a response to the covid-19 booster shot. Defer to [facility] physician to report this to [facility]. Total Time Total Time Spent Total Time Spent (In Minutes): 60 Discharge Plan Discharge Items [facility] Disposition[facility] Reason For Visit: UNRESPONSIVE EPISODE Discharge Diagnosis: syncope Condition on Discharge: Good Activity: Resume your previous activity Non-emergency contact: Primary Care Provider Call non-emergency contact if: you have any medication questions, your symptoms worsen, your pain is not controlled, your pain is worsening, your pain is unusual for you, your pain is concerning for you and you have a fever Follow-up/Referrals: Iam BRYSON [Primary Care Provider] - Diet: Regular Addtl Attending Provider Instructions: Please return to normal activity slowly as tolerated. It was a pleasure taking care of you! Please call if you have any questions or problems. You can reach a [facility] hospitalist on duty at [facility] 24 hours a day by calling [phone]. Take care of yourself. Marissa Goetz DO [facility]ist Pending Studies at Discharge: No Skilled Items Patient informed of condition?: Yes DNR: No Discharge Level of Care: Other Communicable Disease: No Discharge Prognosis: Stable Lines: None Urinary Catheter: No Medications and DC Order Prescriptions: Continued atorvastatin 20 mg Tablet 20 mg PO HS RF: 0 amlodipine 5 mg Tablet 5 mg PO DAILY RF: 0 hydrochlorothiazide [HydroDiuril] 25 mg Tablet 25 mg PO DAILY RF: 0 aspirin 81 mg Capsule 81 mg PO DAILY RF: 0 Admission Data Admit Date/Time: 08/11/21 10:05 Attending Provider: Marissa Goetz Admit Provider: Eusebio Boyd Primary Care Provider: Iam BRYSON
--- NOTE | 2021-08-12 12:05 | Electrocardiogram Report ---
Test Reason : Blood Pressure : / mmHG Vent. Rate : 065 BPM Atrial Rate : 065 BPM P-R Int : 182 ms QRS Dur : 088 ms QT Int : 412 ms P-R-T Axes : 071 -21 063 degrees QTc Int : 428 ms Poor data quality, interpretation may be adversely affected Sinus rhythm with occasional Premature ventricular complexes Nonspecific ST and T wave abnormality Abnormal ECG When compared with ECG of 11-AUG-2021 07:58, Nonspecific T wave abnormality no longer evident in Inferior leads Confirmed by Oli Romero ([id number]) on 08/12/2021 12:05:08 PM Referred By: [facility] Confirmed By:Satish Romero
== END 2021-08-12 13:37 ==
LOC: EDINP 07:54 → ED 07:54 → SUATTDRO 10:05 → 2N 11:20